=== PATIENT | male | born 1960 | race Caucasian/White ===

== ENCOUNTER → 2020-09-27 08:31 | Outpatient (CLI) | payer OTHER, SELFPAY ==
[2020-09-25 14:31] VITALS: BMI 33.7
[2020-09-27 12:34] LABS: Absolute Lymphocyte Count 1.65 X10^3/uL (0.83-4.51); Basophil# 0.07 X10^3/uL; Basophil% 0.9 % (0-1); Eosinophil# 0.25 X10^3/uL; Eosinophils% 3.3 % (0-5); Hematocrit 45.3 % (40-54); Hemoglobin 14.7 g/dL (13.0-16.5); Lymphocyte # 1.65 X10^3/ul (4.0); Lymphocyte % 21.6 % (19-41); Mean Corp Hgb Conc 32.5 g/dL (32-36); Mean Corpuscular Hgb 30.4 pg (27.0-32.0); Mean Corpuscular Volume 93.6 fL (80-94); Mean Platelet Vol. 10.7 fl (6.2-12.0); Monocyte% 7.9 % (0-10); NRBC Flagged by Analyzer 0 % (0-5); Neutrophil # 5.04 X10^3/uL (2.7-7.7); Platelet Count 250 K/mm3 (150-450); Red Blood Count 4.84 M/mm3 (4.6-6.2); White Blood Count 7.6 K/mm3 (4.4-11.0)
[2020-09-27 13:02] LABS: Hemoglobin A1c 5.4 % (3.8-5.6)
[2020-09-27 13:10] LABS: ALB/GLOB Ratio 0.9 RATIO (0.9-2.4); AST(SGOT) 13 U/L (15-37); Alanine Aminotransfer ALT/SGPT 29 U/L (16-61); Albumin, Serum 3.6 g/dL (3.2-5.0); Alkaline Phosphatase 116 U/L (45-117); Anion Gap 6 (5-15); BUN 22 mg/dL (7-18); BUN/Creat Ratio 17.5 RATIO (10-20); Chloride 110 mmol/L (98-107); Cholesterol 171 mg/dL (200); Creatinine, Serum 1.26 mg/dL (0.70-1.30); EST Glomerular Filtration Rate 62 mL/min (>60); Est Glom Filt Rate - Afr Amer 75 mL/min (>60); Globulin 3.9 g/dL (2.2-4.2); Glucose 97 mg/dL (74-106); High Density Lipoprotein 41 mg/dL; PSA,Total - Annual Screen 4.56 ng/mL (0.00-4.00); Potassium 4.5 mmol/L (3.5-5.1); Protein, Total 7.5 g/dL (6.4-8.2); Sodium Level 142 mmol/L (136-145); Thyroid Stim Hormone (TSH) 2.12 uIU/mL (0.358-3.74); Triglycerides 97 mg/dL; Very Low Density Lipoprotein 19 mg/dL (5-40)
[2020-09-27 13:43] LABS: Vitamin D,25 Hydroxy 18.4 ng/mL
== END ==
PROVIDERS: PCP Internal Medicine; Referring Provider Internal Medicine; Visit Provider Internal Medicine
DX: R53.83 Other fatigue (principal); Z12.5 Encounter for screening for malignant neoplasm of prostate; Z13.1 Encounter for screening for diabetes mellitus; Z13.220 Encounter for screening for lipoid disorders
CPT/HCPCS: 36415; 80053; 80061; 82306; 83036; 84153; 84443; 85025; G0103

== ENCOUNTER → 2020-10-05 12:50 | Outpatient (CLI) | payer OTHER, SELFPAY ==
[2020-09-25 14:31] VITALS: BMI 33.7
--- NOTE | 2020-10-05 12:52 | EKG12_ITS ---
Test Reason : SOB Blood Pressure : / mmHG Vent. Rate : 068 BPM Atrial Rate : 068 BPM P-R Int : 154 ms QRS Dur : 090 ms QT Int : 388 ms P-R-T Axes : 038 073 056 degrees QTc Int : 412 ms Normal sinus rhythm with sinus arrhythmia Normal ECG Confirmed by KARLA SMALLS, BALBIR ([id number]), movie editor MAKENZIE RICHTER ([id number]) on 10/09/2020 12:24:17 P M Referred By: Candy Schroeder Confirmed By:LORIE ACOSTA MD
== END ==
PROVIDERS: PCP Internal Medicine; Referring Provider Internal Medicine; Visit Provider Internal Medicine
DX: R06.00 Dyspnea, unspecified (principal)
CPT/HCPCS: 93005

== ENCOUNTER → 2020-10-16 11:45 | Outpatient (CLI) | payer OTHER, SELFPAY ==
[2020-09-25 14:31] VITALS: BMI 33.7
--- NOTE | 2020-10-16 16:33 | STRESSREP ---
Stress Test Report Exercise stress test. 60-year-old man with a history of dyspnea. Stress protocol: Resting EKG demonstrates normal sinus rhythm with a rate of 68 bpm normal intervals are noted resting blood pressure is 146/88 mmHg. The patient exercised according to the regular Kimo protocol for total duration of 6 minutes. Patient completed stage II of the Kimo protocol the maximum heart rate attained was 162 bpm which was 101% of max impacted heart rate and a maximum workload of 7 metabolic equivalents. At rest there were no ST or T wave changes noted suggest ischemia at peak exercise upsloping ST changes only were noted with no meet the criteria for ischemia. No clinical angina was noted the test was terminated due to dyspnea and the target heart rate being achieved. The resting blood pressure is 146/88 with a peak blood pressure of 200/70 mmHg. Good but hypertensive blood pressure response to exercise was noted. Conclusion: Exercise stress test with no EKG criteria for ischemia at a moderate workload. Hypertensive response to exercise.
== END ==
PROVIDERS: PCP Internal Medicine; Referring Provider Internal Medicine; Visit Provider Internal Medicine
DX: R06.00 Dyspnea, unspecified (principal)
CPT/HCPCS: 93017

== ENCOUNTER 2020-10-20 05:28 | Day surgery (SDC) | payer OTHER, SELFPAY ==
[2020-09-25 14:31] VITALS: BMI 33.7
[2020-10-20] VITALS (8 sets, daily range): BP systolic 79–154; BP diastolic 52–80; PULSE 51–71; RESP 16; TEMP 35.8–36.7; O2SAT 94–100; BMI 31.9
--- NOTE | 2020-10-20 | COLBX_PTH ---
PATIENT: RACHELLE REYES LOC: EN U#:[id number] AGE/SX: 60/M ROOM: RE10/20/[address]: Dr. Nic Hoover MD : 1960 BED: DIS: 10/20/2020 SPEC #: [id number] RECD: 10/20/20 12:40 STATUS: JO ANN JENNA #: [id number] LETICIA: 10/20/20 00:[address]: Nic Hoover DEPT: SURGICAL PATHOLOGY RECD BY: Stef Early ENTERED: 10/20/20 12:40 SP TYPE: COLON BX OTHR DR: Dr. Candy Schroeder MD Tissues: Sigmoid colon biopsy Procedures: Surgery Specimen Level IV HEADER OPERATION: Colonoscopy - open access (MOD) PRE-OP DIAGNOSIS: Screening TISSUE SUBMITTED: Mid sigmoid polyp MICROSCOPIC DIAGNOSIS Mid sigmoid polyp, biopsy: Tubular adenoma. JOSE:indu 10/23/2020 MICROSCOPIC DESCRIPTION Slides are reviewed. GROSS DESCRIPTION Received in fixative is one container labeled with the patient's name and designated mid sigmoid polyp. The specimen consists of a piece of kearney-pink polyp measuring 0.4 x 0.4 x 0.2 cm. The specimen is totally submitted in one cassette. / SJ:indu 10/20/20 TC:1 CPT: 47208
[2020-10-20] MEDS: Lactated Ringers 1,000 ML 100 ML IV (06:00)
--- NOTE | 2020-10-20 06:03 | PCM.HP.STD ---
Problem List (1) Screening for intestinal cancer Status: Acute History of Present Illness Date of Admission: 10/20/20 The patient is a 60 year old M who presents for screening colonoscopy today. His previous 1 was 10 years ago. He denies bright red blood per rectum or melena. No abdominal pain. He has had a weight loss with the COVID-19. He has no family history of colon cancer. He states that Thanks time 2019 he did have COVID-19. He claims that he feels that he is over all of those symptoms. There may be some mildly lingering shortness of breath. He has returned to normal activity. Past Medical History Allergies No Known Allergies Allergy (Verified 10/20/20 05:31) Home Medications: Ambulatory Orders Medication Instructions Recorded acetaminophen 500 mg tablet 500 mg PO Q6H PRN 09/25/20 ibuprofen 400 mg tablet 400 mg PO TID PRN 09/25/20 tamsulosin 0.4 mg capsule 0.4 mg PO QHS #30 cap 09/25/20 Calcium Carbonate [Tums] 300 mg PO PRN PRN 10/05/20 Smoking Status: Never smoker Tobacco Use: Non-smoker Review of Systems Constitutional: Denies: Fever HEENT: Denies: Difficulty Swallowing Cardiovascular: Denies: Chest Pain Respiratory: Reports: Shortness of Breath Gastrointestinal: Denies: Abdominal Pain, Hematochezia, Melena Endocrine: Reports: Change in Body Habitus - Increased weight VTE Information - Inpt Only VTE Present on Admission: No - Physical Exam Vitals/I&O's: Vital Signs Temp Pulse Resp BP Pulse Ox 98.1 F 71 16 154/80 H 96 10/20/20 05:48 10/20/20 05:48 10/20/20 05:48 10/20/20 05:48 10/20/20 05:48 Oxygen Delivery Method Room Air Weight: 255 lb 11.779 oz Body Mass Index (BMI) 31.9 General: Alert, Oriented x3, Cooperative, No apparent distress HEENT: Atraumatic Oral: Moist Mucosa Neck: Supple Lungs: Clear to auscultation, Normal air movement Cardiovascular: Regular rate, Regular Rhythm Abdomen: Soft, Non Tender Extremities: No Calf Tenderness Psych/Mental Status: Normal Affect Current Medications Lactated Ringer's () 1,000 mls @ 100 mls/hr IV .Q10H JENNIFER Last Admin: 10/20/20 06:00 Dose: 100 mls/hr Documented by: Assessment/Plan All Active Problems Screening for intestinal cancer (Acute) 60-year-old gentleman who presents for screening colonoscopy. He is aware of the technique, benefit, risk, alternatives. He has had an opportunity to ask and have questions answered. He presents via open access today. We will proceed as noted. Nic Hoover M.D., F.A.C.S.
--- NOTE | 2020-10-20 06:54 | OP.COLON_ITS ---
Patient Name: Joe Begum Procedure Date: 10/20/2020 6:07 AM Date of : 1960 Age: 60 Procedure: Colonoscopy Indications: Screening for colorectal malignant neoplasm Providers: Nic Hoover MD Referring MD: Candy Schroeder Medicines: Midazolam 5 mg IV, Meperidine 100 mg IV, Diphenhydramine 12.5 mg IV Patient Profile: Last Colonoscopy: 10 years ago. Complications: No immediate complications. Procedure: Pre-Anesthesia Assessment: - Prior to the procedure, a History and Physical was performed, and patient medications and allergies were reviewed. The patient's tolerance of previous anesthesia was also reviewed. The risks and benefits of the procedure and the sedation options and risks were discussed with the patient. All questions were answered, and informed consent was obtained. Prior Anticoagulants: The patient has taken no previous anticoagulant or antiplatelet agents. ASA Grade Assessment: II - A patient with mild systemic disease. After reviewing the risks and benefits, the patient was deemed in satisfactory condition to undergo the procedure. After I obtained informed consent, the scope was passed under direct vision. Throughout the procedure, the patient's blood pressure, pulse, and oxygen saturations were monitored continuously. The adult colonoscope was introduced through the anus and advanced to the cecum, identified by appendiceal orifice and ileocecal valve. The colonoscopy was performed without difficulty. The patient tolerated the procedure well. The quality of the bowel preparation was good. The ileocecal valve and the appendiceal orifice were photographed. Moderate Sedation: Moderate (conscious) sedation was administered by the endoscopy nurse and supervised by the endoscopist. The following parameters were monitored: oxygen saturation, heart rate, blood pressure, and response to care. Total physician intraservice time was 18 minutes. Scope In: 6:31:06 AM Scope Withdrawal Time 0 hours 8 minutes 50 seconds Scope Out: 6:47:02 AM Total Procedure Duration Time 0 hours 15 minutes 56 seconds Findings: The digital rectal exam findings include non-thrombosed external hemorrhoids and internal hemorrhoids (Grade I). Pertinent negatives include normal prostate (size, shape, and consistency). A 9 mm polyp was found in the mid sigmoid colon. The polyp was semi-pedunculated. The polyp was removed with a hot snare. Resection and retrieval were complete. Multiple diverticula were found in the sigmoid colon. Impression: - Non-thrombosed external hemorrhoids and internal hemorrhoids (Grade I) found on digital rectal exam. - One 9 mm polyp in the mid sigmoid colon, removed with a hot snare. Resected and retrieved. - Diverticulosis in the sigmoid colon. Recommendation: - Discharge patient to home. - Resume previous diet. - Continue present medications. - Telephone my office for pathology results in 1 week. - Repeat colonoscopy in 5 years for surveillance based on pathology results. Procedure Code(s): --- Professional --- 03876, Colonoscopy, flexible; with removal of tumor(s), polyp(s), or other lesion(s) by snare technique 00435, 59, Moderate sedation services provided by the same physician or other qualified health post anesthesia care unit nurse performing the diagnostic or therapeutic service that the sedation supports, requiring the presence of an independent trained observer to assist in the monitoring of the patient's level of consciousness and physiological status; initial 15 minutes of intraservice time, patient age 5 years or older Diagnosis Code(s): --- Professional --- Z12.11, Encounter for screening for malignant neoplasm of colon K64.0, First degree hemorrhoids K64.4, Residual hemorrhoidal skin tags D12.5, Benign neoplasm of sigmoid colon K57.30, Diverticulosis of large intestine without perforation or abscess without bleeding CPT copyright 2017 [employer]. All rights reserved. The codes documented in this report are preliminary and upon film masker review may be revised to meet current compliance requirements. Nic Hoover MD 10/20/2020 6:54:45 AM This report has been signed electronically. Number of Addenda: 0 Note Initiated On: 10/20/2020 6:07 AM
--- NOTE | 2020-10-20 06:55 | OP.CCLET_ITS ---
10/20/2020 Candy Schroeder [facility] [address] [place] [address] Re : Colonoscopy procedure for Joe Begum Dear Dr. Schroeder This procedure was performed on Tuesday, October 20, 2020. My impressions and recommendations are as follows: Impressions : - Non-thrombosed external hemorrhoids and internal hemorrhoids (Grade I) found on digital rectal exam. - One 9 mm polyp in the mid sigmoid colon, removed with a hot snare. Resected and retrieved. - Diverticulosis in the sigmoid colon. Recommendations : - Discharge patient to home. - Resume previous diet. - Continue present medications. - Telephone my office for pathology results in 1 week. - Repeat colonoscopy in 5 years for surveillance based on pathology results. My findings are described in the full procedure note, which is enclosed. If I can be of further assistance, please feel free to contact me at Doctor phone number(s): Work: . Sincerely, Nic Hoover MD 10/20/2020 6:54:45 AM This report has been signed electronically.
== END 2020-10-20 07:55 | disposition home or self-care (01) ==
LOC: EN 05:29 → AC 05:29
PROVIDERS: PCP Internal Medicine; Referring Provider Internal Medicine; Visit Provider Surgery
PROC: 0DJD8ZZ Inspection of Lower Intestinal Tract, Via Natural or Artificial Opening Endoscopic (ICD-10-PCS; CPT 45378; principal; 2020-10-20 06:25)
DX: Z12.11 Encounter for screening for malignant neoplasm of colon (principal); D12.5 Benign neoplasm of sigmoid colon; K57.30 Diverticulosis of large intestine without perforation or abscess without bleeding; K64.0 First degree hemorrhoids; K64.4 Residual hemorrhoidal skin tags; Z20.828 Contact with and (suspected) exposure to other viral communicable diseases
CPT/HCPCS: 45385; 87426; 88305; 99152; 99153; C9803; J7120

== ENCOUNTER → 2020-10-23 09:13 | Outpatient (CLI) | payer OTHER, SELFPAY ==
[2020-10-20 05:48] VITALS: BMI 31.9
--- NOTE | 2020-10-23 09:14 | RAD_ITS ---
STUDY: X-RAY CHEST REASON FOR EXAM: Male, 60 years old. Dyspnea on exertion TECHNIQUE: PA and lateral views of the chest. COMPARISON: None. FINDINGS: The lungs are clear and expanded. Scattered calcified granulomas. There is no demonstrated pleural abnormality. Normal size heart. Normal mediastinum and anitha. Normal visualized pulmonary arteries. Normal visualized aortic arch and descending thoracic aorta. Normal visualized thoracic spine. Normal visualized ribs, clavicles, and shoulders. There is no demonstrated abnormality of the visualized soft tissue structures of the upper abdomen. RAD/Chest PA and Lateral IMPRESSION: Normal x-ray examination of the chest. Electronically Signed: Stephane Whitley MD at 18:10 EST , Service support ,
== END ==
PROVIDERS: PCP Internal Medicine; Referring Provider Internal Medicine; Visit Provider Internal Medicine
DX: R06.00 Dyspnea, unspecified (principal)
CPT/HCPCS: 71046

== ENCOUNTER → 2020-11-01 11:27 | Outpatient (CLI) | payer OTHER, SELFPAY ==
[2020-11-01 10:32] VITALS: BMI 33.5
[2020-11-01 12:53] LABS: BNP,B-Type NATRIURETIC PEPTIDE 24.9 pg/mL (0-100)
== END ==
PROVIDERS: PCP Internal Medicine; Visit Provider Internal Medicine Cardiovascular Disease
DX: R06.00 Dyspnea, unspecified (principal)
CPT/HCPCS: 36415; 83880

== ENCOUNTER → 2020-11-02 10:02 | Outpatient (CLI) | payer OTHER, SELFPAY ==
[2020-11-01 10:32] VITALS: BMI 33.5
[2020-11-02 11:19] LABS: PSA,Total- Diagnostic 4.66 ng/mL (0.0-4.0)
== END ==
PROVIDERS: PCP Internal Medicine; Referring Provider Nurse Practitioner Adult Health; Visit Provider Nurse Practitioner Adult Health
DX: R97.20 Elevated prostate specific antigen [PSA] (principal)
CPT/HCPCS: 36415; 84153

== ENCOUNTER → 2020-11-15 12:47 | Outpatient (CLI) | payer OTHER, SELFPAY ==
[2020-11-01 10:32] VITALS: BMI 33.5
--- NOTE | 2020-11-15 12:51 | ECHOCS_ITS ---
Reason For Study: DYSPNEA Procedure This was a 2D Doppler, Color Flow transthoracic echocardiogram. The study was technically difficult. Contrast injection was performed. Exam performed in department. Left Ventricle Normal LV size. Left ventricular systolic function is normal. The estimated ejection fraction is 55 %. Normal diastology for age. No regional wall motion abnormalities noted. Right Ventricle Normal RV size. Normal systolic function. Atria Normal left atrium. Normal right atrium. Mitral Valve Normal mitral valve. Tricuspid Valve Normal tricuspid valve. Mild (1+) tricuspid valve insufficiency. Pulmonary artery systolic pressure is 33 mmHg. Aortic Valve Trisinus/trileaflet aortic valve. Normal aortic valve. Pulmonic Valve Normal pulmonic valve. Great Vessels Normal aortic root. The pulmonary artery is normal size. Normal inferior vena cava. Pericardium/Pleural No pericardial effusion. Medication 22 gauge I.V. with prn adaptor inserted into right arm. Diluted definity 4.0ml given slow IV push to enhance endocardial definition. MMode/2D Measurements & Calculations LVIDd: 5.2 cm IVSd: 1.0 cm Ao root diam: 3.3 cm LVIDs: 3.7 cm LVPWd: 0.72 cm RVDd: 3.9 cm FS: 29.9 % LAV(MOD-bp): 63.4 ml LVAd ap4: 32.9 cm2 SV(MOD-sp4): 53.5 ml LAV(MOD-bp) Indexed: 26.1 ml/m2 EDV(MOD-sp4): 104.5 ml LAV(MOD-sp2): 66.1 ml EDV(sp4-el): 108.9 ml LAV(MOD-sp4): 57.8 ml LVAs ap4: 20.7 cm2 ESV(MOD-sp4): 51.1 ml ESV(sp4-el): 50.6 ml EF(MOD-sp4): 51.1 % EF(sp4-el): 53.5 % SV(sp4-el): 58.3 ml LA A4 area: 19.7 cm2 LA dimension(2D): 3.9 cm RA A4 area: 13.8 cm2 Time Measurements MV dec time: 0.27 sec Doppler Measurements & Calculations MV E max fabiano: 87.6 cm/sec Lat Peak E' Fabiano: 10.3 cm/sec Med Peak E' Fabiano: 7.3 cm/sec MV A max fabiano: 69.9 cm/sec E/E' lat: 8.5 E/E' med: 12.0 MV E/A: 1.3 Ao V2 max: 163.8 cm/sec LV V1 max: 124.7 cm/sec PA V2 max: 170.3 cm/sec Ao max P.7 mmHg LV V1 max P.2 mmHg TR max fabiano: 263.5 cm/sec TR max P.1 mmHg Interpretation Summary Normal LV size. Left ventricular systolic function is normal. The estimated ejection fraction is 55 %. Contrast injection was performed. Structurally normal valves. Ordering Physician: Jorge Brennan Referring Physician: BRENDA MICHAELS Performed By: Cindy Chance, HAYLEY, RVT
--- NOTE | 2020-11-15 13:49 | CT_ITS ---
STUDY: CT CHEST WITHOUT CONTRAST REASON FOR EXAM: Male, 60 years old. GRANADOS. RADIATION DOSAGE (If Supplied By Facility): CTDIvol = ( 12.19 ) mGy, DLP = ( 219.42 ) mGycm TECHNIQUE: Transaxial imaging was performed without the administration of intravenous contrast material. Cardiac over read examination. Individualized dose optimization techniques were used for this CT. COMPARISON: None. FINDINGS: The lungs are normal. There is no demonstrated pleural abnormality. Normal heart and pericardium. There are multiple small lymph nodes within the mediastinum, which are normal in size and morphology most compatible with reactive lymph hyperplasia. Normal hilar regions. Normal unenhanced pulmonary arteries. Normal aorta arch and descending thoracic aorta. Normal osseous structures. There is no demonstrated abnormality of the visualized upper abdomen. CT/Limited Chest CT w/CCTA IMPRESSION: Normal unenhanced CT Chest examination. Electronically Signed: Stephane Whitley MD at 19:02 EDT , Service support ,
[2020-11-15 14:14] VITALS: BP 134/71; PULSE 64; RESP 16; TEMP 36.8; O2SAT 98; BMI 33.0
--- NOTE | 2020-11-16 13:17 | CA.SCORE ---
Calcium Scoring Date of Study:: 11/15/20 Coronary Calcium Scoring: High-resolution Computed Tomographic imaging of the chest was performed on [11/15/2020], with particular attention paid to the coronary arteries. Images from the examination were analyzed for the presence and extent of coronary artery calcification , using coronary calcium quantification software. The patient tolerated the procedure well and there were no complications. The results of the coronary calcification analysis are provided below. - Findings Left Main (LM): 0 Left Anterior Descending (LAD): 0 Left Circumflex (LCX): 0 Right Coronary Artery (RCA): 0 Total Agatston Score: 0 Percentile Rankin Calcium Scoring Interpretation: 0 No identifiable atherosclerotic plaque. Very low cardiovascular disease risk. <5% chance of presence coronary artery disease A Negative Examination 1-10 Minimal Plaque burden. Significant coronary artery disease very unlikely. 11-100 Mild plaque burden. Likely mild or minimal coronary atherosclerosis. 101-400 Moderate plaque burden Moderate non-obstructive coronary artery disease highly likely. Over 400 Extensive plaque burden. High likelihood of at least one significant coronary stenosis (>50% diameter) Calcium Score: 0 Negative Examination - No significant atherosclerotic plaquing noted.
== END ==
PROVIDERS: PCP Internal Medicine; Referring Provider Internal Medicine Cardiovascular Disease; Visit Provider Internal Medicine Cardiovascular Disease
DX: R06.02 Shortness of breath (principal); R06.00 Dyspnea, unspecified
CPT/HCPCS: 75571; 76380; 93306; Q9957; A4216; C8929

== ENCOUNTER → 2020-11-28 | Outpatient (CLI) | payer OTHER, SELFPAY ==
[2020-11-15 14:14] VITALS: BMI 33.0
--- NOTE | 2020-11-28 08:00 | PROSBIL_PTH ---
PATIENT: RACHELLE REYES LOC: [facility] U#:[id number] AGE/SX: 60/M ROOM: RE11/28/[address]: Dr. Sylvester Lehman MD : 1960 BED: DIS: 11/28/2020 SPEC #: [id number] RECD: 11/28/20 10:38 STATUS: JO ANN RESeema #: [id number] LETICIA: 11/28/20 08:[address]: Sylvester Lehman DEPT: SURGICAL PATHOLOGY RECD BY: Lucille Mcdonald ENTERED: 11/28/20 12:58 SP TYPE: PROST BX NBA DR: Dr. Candy Schroeder MD Tissues: A - PROSTATE RIGHT B - PROSTATE RIGHT C - PROSTATE RIGHT D - PROSTATE LEFT E - PROSTATE LEFT F - PROSTATE LEFT Procedures: PROSTATE BX HEADER OPERATION: Prostate biopsy PRE-OP DIAGNOSIS: R97.20 TISSUE SUBMITTED: A - Right apex, B - Right mid, C - Right base, D - Left apex, E - Left mid, F - Left base MICROSCOPIC DIAGNOSIS A. Right prostate, apex, core biopsy: Focal glandular atrophy and mild chronic inflammation. Focal high-grade prostatic intraepithelial neoplasia (HGPIN). B. Right prostate, mid, core biopsy: Focal glandular atrophy and mild chronic inflammation. Focal high-grade prostatic intraepithelial neoplasia (HGPIN). C. Right prostate, base, core biopsy: Focal glandular atrophy and mild chronic inflammation. D. Left prostate, apex, core biopsy: Focal glandular atrophy and minimal chronic inflammation. E. Left prostate, mid, core biopsy: Focal glandular atrophy and mild chronic inflammation. F. Left prostate, base, core biopsy: Focal glandular atrophy and mild chronic inflammation. AM:indu 11/29/2020 MICROSCOPIC DESCRIPTION Slides are reviewed. GROSS DESCRIPTION A - Received is one container designated prostate, right apex. The specimen consists of two elongated fragments of light kearney-white soft tissue measuring 0.3 and 0.5 cm in length and 0.1 cm in diameter. The specimen is totally submitted in one cassette. B - Received is one container designated prostate, right mid. The specimen consists of two elongated fragments of light kearney-white soft tissue measuring 0.8 and 0.1 cm in length and 0.1 cm in diameter. The specimen is totally submitted in one cassette. C - Received is one container designated prostate, right base. The specimen consists of two elongated fragments of light kearney-white soft tissue measuring 0.8 and 1.2 cm in length and 0.1 cm in diameter. The specimen is totally submitted in one cassette. D - Received is one container designated prostate, left apex. The specimen consists of one elongated fragment of light kearney-white soft tissue measuring 0.7 cm in length and 0.1 cm in diameter. The specimen is totally submitted in one cassette. E - Received is one container designated prostate, left mid. The specimen consists of two elongated fragments of light kearney-white soft tissue measuring 0.7 and 2.2 cm in length and 0.1 cm in diameter. The specimen is totally submitted in one cassette. F - Received is one container designated prostate, left base. The specimen consists of two elongated fragments of light kearney-white soft tissue measuring 1 and 1.5 cm in length and 0.1 cm in diameter. The specimen is totally submitted in one cassette. / SJ:rg 11/28/20 TC:3 CPT: 44712 x6
== END | disposition home or self-care (01) ==
LOC: LABSPEC 11:43
PROVIDERS: PCP Internal Medicine; Visit Provider Urology
DX: R97.20 Elevated prostate specific antigen [PSA] (principal)
CPT/HCPCS: 88305; G0416

== ENCOUNTER → 2021-06-02 07:54 | Outpatient (CLI) | payer OTHER, SELFPAY | PROVIDERS: PCP Internal Medicine; Referring Provider Urology; Visit Provider Urology | DX: N40.1 Benign prostatic hyperplasia with lower urinary tract symptoms (principal) | CPT/HCPCS: 36415; 84153 ==

== ENCOUNTER 2021-10-13 11:14 | Emergency (ER) | payer OTHER, SELFPAY ==
[2021-10-13 11:15] VITALS: BP 162/85; PULSE 87; RESP 18; TEMP 36.7; O2SAT 97; BMI 32.5
--- NOTE | 2021-10-13 11:23 | RAD_ITS ---
STUDY: X-RAY - LEFT WRIST REASON FOR EXAM: Male, 61 years old. Injury/Pain TECHNIQUE: 3 view(s) of the wrist were obtained. COMPARISON: None. FINDINGS: Normal visualized distal radius and ulna. Normal radiocarpal articulation. Normal distal radioulnar articulation. Normal carpal bones. Normal carpal articulations. Normal carpometacarpal articulation of the thumb. Normal second through fifth carpometacarpal articulations. Normal visualized metacarpal bones. The soft tissue structures are unremarkable. RAD/Wrist min 3 Views IMPRESSION: Normal x-ray examination of the wrist. Electronically Signed: Shlomo Early MD at 11:52 EST ,
--- NOTE | 2021-10-13 11:23 | EX.ED.UPPERE ---
HPI <LLOYD Barnes - Last Filed: 10/13/21 12:06> History of Present Illness HPI Narrative: 61-year-old [id number] male presents with atraumatic left wrist pain. 4 days ago he was making a hand waving motion when he felt a pop and pain in the dorsum of his left wrist. It feels slightly swollen and has persistent pain with movement. There is no direct injury. No skin changes. No fever, chills, nausea, or vomiting. Chief Complaint: Upper Extremity Injury PFSH <LLOYD Barnes - Last Filed: 10/13/21 12:06> PFSH Medical History (Updated 10/13/21 @ 11:59 by LLOYD Barnes) BPH (benign prostatic hyperplasia) COVID-19 virus detected (07/19/20) Obesity Home Medications alfuzosin 10 mg PO DAILY 11/15/20 [History Last Taken Unknown] acetaminophen [Tylenol Extra Strength] 1,000 mg PO Q6H PRN #20 tab 10/13/21 [Rx Last Taken Unknown] finasteride 5 mg PO DAILY 10/13/21 [History Last Taken Unknown] Allergy/AdvReac Type Severity Reaction Status Date / Time No Known Allergies Allergy Verified 10/13/21 11:15 Family History Father Hypertension Cancer skin Mother Cancer Surgical History History of colonoscopy with polypectomy (09/2020) Social History (Updated 11/01/20 @ 11:[address] Jorge Brennan MD) Smoking Status: Never smoker alcohol intake: never substance use type: does not use ROS <LLOYD Barnes - Last Filed: 10/13/21 12:06> ROS ED ROS Narrative Constitutional: Negative for fever, chills, malaise. Eyes: Negative for visual change. ENT: Negative for sore throat, ear pain, rhinorrhea. CVS: Negative for palpitations, chest pain, syncope. Respiratory: Negative for shortness of breath, cough, orthopnea. GI: Negative for abdominal pain, nausea, vomiting. : Negative for dysuria, hematuria or frequency. Neuro: Negative for headache, motor/sensory dysfunction. Skin: Negative for rash, abscess, or wound. Musc: Positive for left wrist pain, swelling. No trauma. Heme: Negative for easy bruising, bleeding, lymphadenopathy. EXAM <LLOYD Barnes - Last Filed: 10/13/21 12:06> Physical Exam Narrative Exam Narrative: CONST: Patient sitting in no acute distress. EYES: Normal inspection. NECK: Normal inspection. RESP: No respiratory distress, CTAB. CVS: Regular rate and rhythm, no murmur, no gallop. SKIN: Color normal, no rash, warm, dry, intact. EXTREMITIES: Normal inspection of BUE. Slight tenderness and swelling over the dorsum of the left wrist mainly over the distal ulna, no tenderness of the elbow or hand. Slightly limited wrist extension secondary to pain, otherwise full range of motion and able to make a fist. Motor and sensory function intact in median, ulnar, radial distributions. 2+ radial pulse and capillary refill less than 2 seconds. NEURO: Oriented x4. PSYCH: Normal affect. Const Vital Signs: 10/13/21 11:15 Temperature 98.1 F Temperature Source Temporal Pulse Rate 87 Respiratory Rate 18 Blood Pressure 162/85 H Blood Pressure Mean 110 Pulse Ox 97 Oxygen Delivery Method Room Air MDM <LLOYD Barnes - Last Filed: 10/13/21 12:06> [facility] Narrative Medical decision making narrative: Patient presented for atraumatic left wrist pain. He appears well nontoxic. Vital signs within normal limits. He does have slight soft tissue swelling of the wrist and hand but no overlying skin changes or signs of infection. Extremity is neurovascularly intact. X-ray showed no acute process. With no history of trauma he likely has a wrist sprain versus tendinitis versus carpal tunnel. He was given a Velcro wrist splint and R ICE protocol. He was referred for to orthopedics for further evaluation and was discharged in stable condition. Diagnosis 1. Left wrist pain <Dr. Haley Hou DO - Last Filed: 10/13/21 15:57> [facility] Narrative Medical decision making narrative: Patient evaluated independently and in conjunction with physician funeral home assistant. Agree with note above unless documented otherwise. I was personally present or immediately available for all clinically relevant procedures and performed my own physical exam and review of systems. Patient evaluated for atraumatic left wrist pain. He notes he was moving his wrist the other night when he started having pain. He has significant pain when he tries to extend his wrist it seems to be centered over his palmar aspect of the wrist. Does not have any associated erythema, abnormal warmth or joint effusion. Does not have short arc range of motion and I have a low suspicion for septic joint. Differential includes tendinitis, gouty arthritis or carpal tunnel. X-ray does not show any acute process. X-ray interpreted by myself as well as radiology. Patient placed in a cock-up splint for comfort. Radiography X-Ray: Read by ED Physician, Read by Radiologist and No Fracture Diagnostic Testing: Left wrist Discharge Plan Triage Chief Complaint: Upper Extremity Injury ED Provider: Kinjal Alonso Dx/Rx/DC Orders Clinical Impression: Left wrist sprain Instructions: ED Wrist Splint, Velcro Prescriptions: New acetaminophen [Tylenol Extra Strength] 500 mg tablet 1,000 mg PO Q6H PRN (Reason: pain) Qty: 20 RF: 0 No Action alfuzosin 10 MG tablet extended release 24 hr 10 mg PO DAILY RF: 0 finasteride 5 mg tablet 5 mg PO DAILY RF: 0 Primary Care Provider: Candy Schroeder Referrals: Candy Schroeder MD [Primary Care Provider] - Elliott Penn MD [STAFF PHYSICIAN] - Activity Restrictions/Additional Instructions: The x-ray of your wrist showed no broken bones. You may have a wrist sprain or carpal tunnel syndrome. I provided a wrist splint and you should rest, ice, and elevate the extremity. I prescribed Tylenol to take as needed and referred you to an orthopedic doctor. Disposition Disposition: Home, Self Care Discharge Date/Time: 10/13/21 12:19
[2021-10-13 12:18] VITALS: RESP 16
== END 2021-10-13 12:19 | disposition home or self-care (01) ==
PROVIDERS: Emergency Provider Physician Assistant; PCP Internal Medicine; Visit Provider Physician Assistant
DX: S63.92XA Sprain of unspecified part of left wrist and hand, initial encounter (principal); X58.XXXA Exposure to other specified factors, initial encounter; Y93.9 Activity, unspecified; Y92.9 Unspecified place or not applicable; N40.0 Benign prostatic hyperplasia without lower urinary tract symptoms; Z86.16 Personal history of COVID-19; E66.9 Obesity, unspecified; Z79.899 Other long term (current) drug therapy; Z68.32 Body mass index [BMI] 32.0-32.9, adult
CPT/HCPCS: 73110; 99283

== ENCOUNTER 2022-07-15 10:33 | Outpatient (CLI) | payer SELFPAY ==
[2022-07-15 11:25] LABS: PSA,Total - Annual Screen 1.21 ng/mL (0.00-4.00)
== END 2022-07-15 23:59 | disposition home or self-care (01) ==
LOC: LAB 10:35
PROVIDERS: PCP Internal Medicine; Visit Provider Urology
DX: R97.20 Elevated prostate specific antigen [PSA] (principal)
CPT/HCPCS: 36415; 84153; G0103

== ENCOUNTER → 2023-07-16 | Outpatient (CLI) | payer SELFPAY ==
[2023-07-16 11:19] LABS: PSA,Total- Diagnostic 0.91 ng/mL (0.0-4.0)
== END | disposition home or self-care (01) ==
LOC: LAB 10:00
PROVIDERS: PCP Internal Medicine; Visit Provider Urology
DX: R97.20 Elevated prostate specific antigen [PSA] (principal)
CPT/HCPCS: 36415; 84153

== ENCOUNTER → 2024-07-19 | Outpatient (CLI) | payer SELFPAY ==
[2024-07-19 17:22] LABS: PSA,Total- Diagnostic 0.69 ng/mL (0.0-4.0)
== END | disposition home or self-care (01) ==
LOC: LAB 15:28
PROVIDERS: PCP Internal Medicine; Referring Provider Urology; Visit Provider Urology
DX: N40.1 Benign prostatic hyperplasia with lower urinary tract symptoms (principal)
CPT/HCPCS: 36415; 84153

== ENCOUNTER → 2025-07-27 | Outpatient (CLI) | payer MEDICARE, SELFPAY ==
[2025-07-27 16:06] LABS: PSA,Total - Annual Screen 0.62 ng/mL (0.02-4.00)
== END | disposition home or self-care (01) ==
LOC: LAB 14:05
PROVIDERS: PCP Internal Medicine; Referring Provider Nurse Practitioner; Visit Provider Nurse Practitioner
DX: Z12.5 Encounter for screening for malignant neoplasm of prostate (principal)
CPT/HCPCS: 36415; 84153; G0103